=== PATIENT | female | born 1985 | race Caucasian/White ===

== ENCOUNTER 2021-09-25 15:31 | Emergency (ER) | payer OTHER ==
[~2021-09-25 15:31] MED LIST: ETODOLAC500 MG PO; IBUPROFEN800 MG PO; KEFLEX500 MG PO; METRONIDAZOLE500 MG PO
[2021-09-25] MEDS ORDERED: SILVADENE20 G1 TOP (16:17)
== END 2021-09-25 16:21 | disposition home or self-care (01) ==
LOC: FER 15:31
DX: T22.012D Burn of unspecified degree of left forearm, subsequent encounter (principal); F17.210 Nicotine dependence, cigarettes, uncomplicated
CPT/HCPCS: 99283

== ENCOUNTER 2022-02-18 09:02 | Emergency (ER) | payer OTHER ==
[~2022-02-18 09:02] MED LIST changes: +SILVADENE20 G1 TOP
[2022-02-18 09:48] LABS: BASOPHIL 0.1 % (0-2); EOSINOPHIL 0.8 % (0-5); HCT 38.9 % (37.0-47.0); HGB 12.9 g/dl (12.5-16.0); LYMPHOCYTE 5.3 % (15-48); MCH 32.1 pg (25.0-31.0); MCHC 33.2 g/dL (32.0-36.0); MCV 96.8 fL (78.0-100.0); MONOCYTE 7.6 % (0-12); MPV 8.8 fL (6.0-9.5); NEUTROPHIL 85.8 % (41-80); NRBC 0; PLT 263 K/uL (150-400); RBC 4.02 M/uL (4.20-5.40); RDW 13.2 % (11.5-14.0); WBC 13.5 K/uL (4.0-10.5)
[2022-02-18 09:57] LABS: BILIRUBIN NEGATIVE (NEGATIVE); BLOOD 1+ Ery/uL (NEGATIVE); CLARITY CLEAR (CLEAR); COLOR YELLOW (YELLOW); GLUCOSE (U) NORMAL (NORMAL); LEUKOCYTES 2+ Leu/uL (NEGATIVE); NITRITE NEGATIVE (NEGATIVE); PROTEIN 1+ mg/dL (NEGATIVE); SPECIFIC GRAVITY 1.015 (1.001-1.030); UROBILINOGEN 0.2 mg/dL (0.2-1.0); pH 8.5 (5.0-9.0)
[2022-02-18 10:05] LABS: ALBUMIN 3.6 g/dL (3.4-5.0); BILIRUBIN - TOTAL 0.7 mg/dL (0.2-1.0); BUN/CREAT RATIO (CALC) 14.7 RATIO; CREATININE 0.95 mg/dL (0.51-0.95); GLOBULIN (CALCULATION) 3.1 g/dL; POTASSIUM 3.6 mmol/L (3.5-5.1); TOTAL PROTEIN 6.7 g/dL (6.4-8.2)
[2022-02-18 10:07] LABS: BACTERIA 1+
[2022-02-18] MEDS ORDERED: CEPHALEXIN500 MG PO (11:48)
== END 2022-02-18 11:57 | disposition home or self-care (01) ==
LOC: FER 09:02
PROVIDERS: Emergency Medicine
DX: N12 Tubulo-interstitial nephritis, not specified as acute or chronic (principal); N94.89 Other specified conditions associated with female genital organs and menstrual cycle; E66.9 Obesity, unspecified
CPT/HCPCS: 36415; 80053; 81001; 85025; J0696; J2405; J7030; Q9967